=== PATIENT | male | born 1955 ===

== ENCOUNTER 2023-02-06 17:57 | Outpatient (REF) | payer MEDICARE, SELFPAY ==
[2023-02-06 18:08] LABS: Abs Immature Grans 0.02 10^3/uL (0.0-0.06); Absolute Basophil Count 0.08 10^3/uL (0.0-0.2); Absolute Eosinophil Count 0.03 10^3/uL (0.0-0.7); Absolute Lymphocyte Count 2.43 10^3/uL (1.2-3.4); Absolute Monocyte Count 0.31 10^3/uL (0.1-0.8); Absolute Neutrophil Count 6.47 10^3/uL (1.2-6.7); Basophils % 0.9; Eosinophils % 0.3; HCT 45.2 % (40.0-50.0); HGB 14.9 g/dL (13.5-17.5); Immature Grans % 0.2; MCH 29.9 pg (27.0-33.0); MCV 91 fL (80-95); MPV 11.4 fL (8.0-11.0); Monocytes % 3.3; Neutrophils % 69.3; Platelet Count 280 10^3/uL (130-400); RBC 4.98 10^6/uL (4.36-5.78); RDW 14.2 % (11.8-14.1); RDW-SD 47.3 fL; WBC 9.34 10^3/uL (4.4-10.8)
[2023-02-06 18:39] LABS: ALT 18 U/L (16-63); AST 11 U/L (15-37); Albumin 3.7 g/dL (3.4-5.0); Alkaline Phosphatase 95 U/L (46-116); Anion Gap 6.7 mmol/L (3-11); BUN 13 mg/dL (7-18); Bilirubin, Total 0.7 mg/dL (0.2-1.0); CO2 28.3 mmol/L (21.0-32.0); Calcium 9.1 mg/dL (8.5-10.1); Chloride 108 mmol/L (98-107); Estimated GFR 83.01 (mL/min/1.73m2); Glucose 134 mg/dL (74-106); Sodium 143 mmol/L (136-145); TSH (W/Ref FT4) 1.17 uIU/mL (0.36-3.74); Total Protein 7.2 g/dL (6.4-8.2)
[2023-02-07 21:31] LABS: PSA, Diagnostic 12.3 ng/mL (<=4.5)
== END 2023-02-06 17:58 | disposition home or self-care (01) ==
LOC: NCHCN 17:57
PROVIDERS: Visit Provider Family Medicine
DX: F25.9 Schizoaffective disorder, unspecified (principal); F41.8 Other specified anxiety disorders; C61 Malignant neoplasm of prostate
CPT/HCPCS: 80053; 84153; 84443; 85025